=== PATIENT | female | born 2000 | race Caucasian/White ===

== ENCOUNTER 2018-10-07 20:16 | Observation (INO) ==
[2018-10-07] MEDS ORDERED: ACETAMINOPHEN 500 MG TABLET PO ONE (21:45)
[2018-10-07 22:00] LABS: Hemoglobin [HGB] 11.6 g/dL (12.0-16.0); MEAN CORPUSCULAR HGB CONC 33.1 g/dL (33-37); MEAN CORPUSCULAR VOLUME 87.5 FL (81-99); MEAN PLATELET VOLUME 9.9 FL (7.4-12.2)
[2018-10-07 22:11] LABS: BLOOD UREA NITROGEN 11 mg/dL (7-22); BUN/CREATININE RATIO 18.33 (6-20); SERUM ALBUMIN 3.5 g/dL (3.7-5.6)
[2018-10-07] MEDS ORDERED: Promethazine Tab 25 MG TAB PO PRN (22:41)
--- NOTE | 2018-10-08 06:58 | OB.PROGRES ---
Intake - - Reason for Visit/Chief Complaint: Nausea and Vomiting Admitted From: Home - Estimated Due Date: 10/23/18 Gestational Age in Weeks and Days: 37 Weeks and 6 Days Para: 1 Term Births: 0 Births: 0 Number of Abortions (Spont./Elective): 0 Living Children: 0 - Labs Blood Type and Rh: O+ Hepatitis B Surface Antigen: Absent HIV: Negative Rubella Status: Immune VDRL/RPR: Absent Maternal - Vital Signs Last Taken Vital Signs: Vital Signs - Last Taken Temperature 97.8 F 10/08/18 03:10 Pulse Rate 82 10/08/18 03:10 Respiratory Rate 18 10/08/18 03:10 Blood Pressure 118/55 10/08/18 03:10 Pulse Ox 100 10/08/18 03:10 - Cervical Exam Cervical Dilation (cm): FT Cervical Effacement Percentage: 0 Exam Performed By: IKE Davidson - Vaginal Discharge Vaginal Bleeding Amount: None Vaginal Discharge Amount: None Vaginal Itching: No Monitoring - Uterine Activity Uterine Contraction Monitor Mode: External Contraction Frequency(minutes): 0 Contraction Duration (seconds): 0 Uterine Contraction Pattern: None Uterine Tone Measurement Phase: Soft Uterine Contraction Intensity: Mild Howard Score - Howard Score Cervical Dilation: 0 cm Cervical Effacement: 0-30% Station: -3 Cervical Consistency: Firm Cervical Position: Midposition Howard Score Total: 1 Results - Labs CBC and BMP: 10/07/18 21:58 10/07/18 21:58 Assessment and Plan - Assessment / Plan Additional Assessment/Plan Details: The patient is a 17-year-old at 37-6/7 weeks who presented last evening with significant nausea and emesis 3 over the past 48 hours and a significant headache for 2 hours. The patient had a 24-hour urine completed within the past couple weeks which showed 311 mg in 24 hours. By patient history, the patient has chronic hypertension with history of being on metoprolol and an DIPESH inhibitor to attempt to control her blood pressure and required both medications. Since the patient's onset of her , the patient has not been on an antihypertensive and her blood pressures have been normal. The patient hurt her toe several weeks ago and was seen in an urgent care clinic in [place], [place] and was informed that her blood pressure was elevated. The patient then went to labor and delivery and she had 1 elevated blood pressure with a systolic of 147 but a normal diastolic blood pressure but all blood pressures after that were normal. Last evening the patient presented and her initial blood pressure was 141/82 but all other blood pressures have been normal. There have been no other recorded high blood pressures. However, the patient states that she takes her blood pressures intermittently at home and several have been elevated but no specific documentation of this. Last evening the patient had a reactive NST with no regular contractions. The patient was given promethazine 25 mg tablet and the patient asked to eat even pr ior to being given the promethazine because she was hungry. The patient was also given Tylenol for her headache. This morning, the patient states that she slept well and that she does not have a headache this morning and it is completely resolved and the patient does not have nausea or emesis overnight and no nausea currently. The patient had labs which showed a normal H&H, normal platelets, normal creatinine, normal liver function tests and normal amylase and lipase. GBS -2 weeks ago. Past medical history significant for anxiety, depression, sinus tachycardia and hypertension. No diabetes. No asthma. The patient stated that she had a significant workup with cardiology but was never informed of the results except for she received a letter stating that everything was normal. The patient then saw another doctor 2 months later and was placed on the 2 antihypertensives secondary to high blood pressure. The patient does not recall if she was evaluated for other causes of hypertension. The patient did have a Holter monitor as well as a stress test by cardiology. Past surgical history-no abdominal surgery Allergies to lawanda such as lidocaine or benzocaine. The patient apparently can take Carbocaine. The patient was seen by an cotton grower. Tobacco during none. Patient did smoke prior to but quit when she discovered she was . No alcohol in . No drugs in . Objective: Please see the vital signs. Initial blood pressure was 141/82 but all other blood pressures have been normal. Gen.-well-developed well-nourished woman in no acute distress. Patient was sleeping when I first went into the room. Lungs clear to auscultation Heart slight tachycardia with a pulse between 101 and 108. Otherwise regular rhythm Abdomen is gravid and soft. Cephalic by Noel's. Cervix by my check was fingertip and her cervix was posterior and head was -4 station Lower Extremities with trace to 1+ edema. No clonus. Patellar reflexes were 2+ bilaterally. Assessment: IUP 37-6/7 weeks with proteinuria with 311 mg in 24 hours. Patient with a history of chronic hypertension with patient reporting requiring 2 different medications a beta renee and an DIPESH inhibitor to control her blood pressures. This was prior to . During the patient's , the patient has not been on an antihypertensive and her blood pressures have been normal. The patient has had 2 recorded elevated blood pressures that were mildly e levated. Several weeks ago she had a systolic blood pressure of 147 although the diastolic blood pressure was normal and this is when she first presented after being seen in the urgent care after possibly fracturing her toe. The patient was concerned about her and presented to labor and delivery. The patient had one elevated blood pressure and then all other blood pressures were normal. The patient has had normal blood pressures since. Last evening, the patient presented and had an elevated blood pressure of 141/82 and then all other blood pressures are normal. Reactive NST. The patient's headache has resolved completely. Liver function tests were normal, creatinine was normal. Amylase and lipase was normal. The patient does not have hemoconcentration of her H&H. An platelets are normal. The patient's nausea and vomiting has resolved completely. Group B strep negative. Plan: The patient, her mother and father and myself discussed the fact that the patient has chronic hypertension. The patient may have superimposed preeclampsia but the majority of her blood pressures are normal and the 2 elevated blood pressures that she has had several weeks apart were when the patient was either in pain with a possible fractured toe or when she was in pain with a headache and both times there was anxiety involved. Follow-up blood pressures have all been normal. There was not a baseline 24-hour urine completed. The 24 urine completed a couple weeks ago was elevated at 311 mg. Patient with chronic hypertension and superimposed preeclampsia sometimes will have even increased proteinuria with greater than 500 mg in 24 hours. I am not sure if I can state that the patient has chronic hypertension with superimposed preeclampsia currently. I would like to get a biophysical profile this morning to check the TRICIA but also other biophysical profile parameters. We discussed the possibility of returning tomorrow and having a new set of labs drawn and checking her blood pressures if the BPP is normal. Of course, if the patient develops a headache or nausea and vomiting, the patient should return sooner. We discussed cervical ripening with Cytotec tomorrow at 38 weeks gestation if the patient's blood pressure was again elevated or if the labs were abnormal or significant changes in the labs were noted. We also discussed induction of labor today with cervical ripening if the patient's biophysical profile was decreased. Currently, I will await the biophysical profile.
--- NOTE | 2018-10-08 10:16 | DI ---
LIMITED OBSTETRICAL ULTRASOUND FOR BIOPHYSICAL PROFILE, 10/08/2018 8:30 AM Clinical History: Proteinuria of . Chronic hypertension. Previous Exam: 09/28/2018. EDC Based on Early OB US: 10/23/2018. TRICIA: 12.9 cm. Heart Rate: 156 beats per minute. Placenta: Posterior corpus. Grade 1. Respiration Score: 2 Fine Motor Score: 2 Gross Motor Score: 2 Amnionic Fluid Score: 2 Reading: Biophysical Profile Score: 8/8
== END 2018-10-08 10:45 | disposition home or self-care (01) ==
LOC: OBIP 20:16 → OBOP 20:16
PROVIDERS: ADMIT Obstetrics & Gynecology; ATTEND Obstetrics & Gynecology

== ENCOUNTER 2018-10-09 12:35 | Observation (INO) ==
[2018-10-09 13:08] LABS: Hematocrit [HCT] 35.4 % (37.0-47.0); MEAN CORPUSCULAR HGB CONC 33.9 g/dL (33-37); MEAN CORPUSCULAR VOLUME 87.6 FL (81-99); MEAN PLATELET VOLUME 9.7 FL (7.4-12.2); RED BLOOD COUNT 4.04 10^6/uL (4.20-5.40)
[2018-10-09 13:18] LABS: BLOOD UREA NITROGEN 10 mg/dL (7-22); BUN/CREATININE RATIO 16.66 (6-20); SERUM ALBUMIN 3.7 g/dL (3.7-5.6); Uric Acid 5.3 mg/dl (2.5-6.2)
[2018-10-09] MEDS ORDERED: MORPHINE SULFATE 4 MG/1 ML IM PRN (15:13)
[2018-10-09] MEDS ORDERED: DOCUSATE 100 MG CAPSULE PO ONE (15:17)
--- NOTE | 2018-10-09 15:30 | OB.PROGRES ---
Intake - - Reason for Visit/Chief Complaint: BP Monitoring, NST Admitted From: Home - Estimated Due Date: 10/23/18 Gestational Age in Weeks and Days: 38 Weeks and 0 Days Para: 1 Term Births: 0 Births: 0 Number of Abortions (Spont./Elective): 0 Living Children: 0 - Labs Blood Type and Rh: O+ Maternal - Vital Signs Last Taken Vital Signs: Vital Signs - Last Taken Temperature 98.3 F 10/09/18 12:44 Pulse Rate 79 10/09/18 12:44 Respiratory Rate 16 10/09/18 12:44 Blood Pressure 120/65 10/09/18 13:17 Pulse Ox 99 10/09/18 12:44 - Vaginal Discharge Vaginal Bleeding Amount: None Vaginal Discharge Amount: None Monitoring - Uterine Activity Uterine Contraction Monitor Mode: External Uterine Contraction Pattern: Irregular Uterine Tone Measurement Phase: Soft Results - Labs CBC and BMP: 10/09/18 12:53 10/09/18 12:53 Assessment and Plan - Assessment / Plan Additional Assessment/Plan Details: Please see the note for low from yesterday. The patient presented today for follow-up. Positive movement. No gush of fluid or bleeding. No regular contractions. Only a few irregular contractions. The patient is without right upper quadrant pain. No nausea or vomiting. The patient does have a headache. Today, the patient relays that she has a long history of headaches. Often, sleep is the only treatment that resolves her headache. The patient states that over the past 4-5 weeks, the patient has had a different type of headache that has been quite significant. She will often go to sleep and then wake up with a headache. When questioned about her headache from Tuesday evening to Tuesday morning, the patient states that her headache really never did resolve even though that is what she told me yesterday. She stated that when she got home she had a headache again. She did not take Tylenol. She stated that she slept most of the day yesterday. This morning at 1100 hrs., the patient took 2 extra strength Tylenol. The headache was 7 out of 10 and now it is 4 out of 10 in intensity. The patient's blood pressures today are normal. All of her labs are normal. Reactive NST. She did have a urine specific gravity 1.020 and I looked at her urine and it was just a dark yellow and that is what the patient was calling a bright yellow color before. Apparently, she is third spacing some fluid and her urine is concentrated most of the time. I did check the patient's cervix after the patient voided and the patient's cervix was a fingertip external os and cephalic by Noel's. Ultrasound yesterday confirms cephalic presentation. The patient, her mother, and I discussed preeclampsia and that usually headaches with preeclampsia do not resolve at all secondary to cerebral edema. We discussed that all of her blood pressures are normal today. All of her labs are normal. The patient does have a 24-hour urine completed a couple weeks ago that did show 311 mg in 24 hours. This is slightly elevated greater than the 300 mg per 24 hour cut off point. The patient does have chronic hypertension with a history of being on 2 different antihypertensives-a beta renee and an DIPESH inhibitor but has not required any antihypertensive this . Although her headaches may be related to preeclampsia, my thoughts are that her headaches are not related to preeclampsia. The patient has had 2 documented elevated blood pressures over the past 3 weeks with yesterday's blood pressure with a systolic of 141 over 80s and a previous one of 147 over 80s. All other blood pressures have been normal this entire documented by us. The patient and I discussed IM morphine and promethazine orally. I will administer morphine 4 mg IM 1 dose and promethazine 25 mg tablet one half tablet to one tablet by mouth every 6 hours. If the patient's headache does not resolve, the patient will have to undergo cervical ripening and induction of labor for presumed preeclampsia with proteinuria and headache or cephalgia and the 2 isolated minimally elevated blood pressures. If the patient's headache does resolve, the patient will go home with strict precautions to return. I may have to observe the patient overnight depending upon the patient's headache. If the patient's headache worsens, I will offer the patient induction of labor with cervical ripening with Cytotec and place the patient on magnesium sulfate prophylaxis. Previous note from yesterday: The patient is a 17-year-old at 37-6/7 weeks who presented last evening with significant nausea and emesis 3 over the past 48 hours and a significant headache for 2 hours. The patient had a 24-hour urine completed within the past couple weeks which showed 311 mg in 24 hours. By patient history, the patient has chronic hypertension with history of being on metoprolol and an DIPESH inhibitor to attempt to control her blood pressure and required both medications. Since the patient's onset of her , the patient has not been on an antihypertensive and her blood pressures have been normal. The patient hurt her toe several weeks ago and was seen in an urgent care clinic in [place], [place] and was informed that her blood pressure was elevated. The patient then went to labor and delivery and she had 1 elevated blood pressure with a systolic of 147 but a normal diastolic blood pressure but all blood pressures after that were normal. Last evening the patient presented and her initial blood pressure was 141/82 but all other blood pressures have been normal. There have been no other recorded high blood pressures. However, the patient states that she takes her blood pressures intermittently at home and sev eral have been elevated but no specific documentation of this. Last evening the patient had a reactive NST with no regular contractions. The patient was given promethazine 25 mg tablet and the patient asked to eat even prior to being given the promethazine because she was hungry. The patient was a lso given Tylenol for her headache. This morning, the patient states that she slept well and that she does not have a headache this morning and it is completely resolved and the patient does not have nausea or emesis overnight and no nausea currently. The patient had labs which showed a normal H&H, normal platelets, normal creatinine, normal liver function tests and normal amylase and lipase. GBS -2 weeks ago. Past medical history significant for anxiety, depression, sinus tachycardia and hypertension. No diabetes. No asthma. The patient stated that she had a significant workup with cardiology but was never informed of the results except for she received a letter stating that everything was normal. The patient then saw another doctor 2 months later and was placed on the 2 antihypertensives secondary to high blood pressure. The patient does not recall if she was evaluated for other causes of hypertension. The patient did have a Holter monitor as well as a stress test by cardiology. Past surgical history-no abdominal surgery Allergies to lawanda such as lidocaine or benzocaine. The patient apparently can take Carbocaine. 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 Tobacco during none. Patient did smoke prior to but quit when she discovered she was . No alcohol in . No drugs in . Objective: Please see the vital signs. Initial blood pressure was 141/82 but all other blood pressures have been normal. Gen.-well-developed well-nourished woman in no acute distress. Patient was sleeping when I first went into the room. Lungs clear to auscultation Heart slight tachycardia with a pulse between 101 and 108. Otherwise regular rhythm Abdomen is gravid and soft. Cephalic by Noel's. Cervix by my check was fingertip and her cervix was posterior and head was -4 station Lower Extremities with trace to 1+ edema. No clonus. Patellar reflexes were 2+ bilaterally. Assessment: IUP 37-6/7 weeks with proteinuria with 311 mg in 24 hours. Patient with a history of chronic hypertension with patient reporting requiring 2 different medications a beta renee and an DIPESH inhibitor to control her blood pressures. This was prior to . During the patient's , the patient has not been on an antihypertensive and her blood pressures have been normal. The patient has had 2 recorded elevated blood pressures that were mildly elevated. Several weeks ago she had a systolic blood pressure of 147 although the diastolic blood pressure was normal and this is when she first presented after being seen in the urgent care after possibly fracturing her toe. The patient was concerned about her and presented to labor and delivery. The patient had one elevated blood pressure and then all other blood pressures were normal. The patient has had normal blood pressures since. Last evening, the patient presented and had an elevated blood pressure of 141/82 and then all other blood pressures are normal. Reactive NST. The patient's headache has resolved completely. Liver function tests were normal, creatinine was normal. Amylase and lipase was normal. The patient does not have hemoconcentration of her H&H. An platelets are normal. The patient's nausea and vomiting has resolved completely. Group B strep negative. Plan: The patient, her mother and father and myself discussed the fact that the patient has chronic hypertension. The patient may have superimposed preeclampsia but the majority of her blood pressures are normal and the 2 elevated blood pressures that she has had several weeks apart were when the patient was either in pain with a possible fractured toe or when she was in pain with a headache and both times there was anxiety involved. Follow-up blood pressures have all been normal. There was not a baseline 24-hour urine completed. The 24 urine completed a couple weeks ago was elevated at 311 mg. Patient with chronic hypertension and superimposed preeclampsia sometimes will have even increased proteinuria with greater than 500 mg in 24 hours. I am not sure if I can state that the patient has chronic hypertension with superimposed preeclampsia currently. I would like to get a biophysical profile this morning to check the TRICIA but also other biophysical profile parameters. We discussed the possibility of returning tomorrow and having a new set of labs drawn and checking her blood pressures if the BPP is normal. Of course, if the patient develops a headache or nausea and vomiting, the patient should return sooner. We discussed cervical ripening with Cytotec tomorrow at 38 weeks gestation if the patient's blood pressure was again elevated or if the labs were abnormal or significant changes in the labs were noted. We also discussed induction of labor today with cervical ripening if the patient's biophysical profile was decreased. Currently, I will await the biophysical profile. Addendum entered and electronically signed by Colten Mead 10/08/18 10:44: Biophysical profile was 10 out of 10. The patient's blood pressures have all been normal. The patient does not have a headache. Her nausea has resolved. No emesis. The patient, her mother, her father and myself talked at length. I sighted an article on chronic hypertension in and read them aspects of the article. I discussed induction between 38 and 0 and 39 and 6 when patients are not on antihypertensives. We discussed superimposed preeclampsia and the diagnosis with often a change in the baseline 24-hour urine for total protein. The patient had a 24-hour urine for total protein completed a couple weeks ago which showed 311 mg in 24 hours. The current plan is to have the patient return tomorrow for a nonstress test as well as a gestational hypertension panel. kick counts and labor precautions and preeclampsia precautions discussed with patient. If the patient has a headache that is not resolving with 2 extra strength along all or 3 regular Tylenol then the patient should call labor and delivery. The patient has severe right upper quadrant pain that is not resolving. The patient expressed understanding we'll follow up tomorrow midday in the early afternoon. Unless something changes.
[2018-10-09] MEDS: Promethazine Tab 25 MG TAB PO PRN ×2 (15:32→21:29)
--- NOTE | 2018-10-09 22:19 | OB.PROGRES ---
Interval History: The patient states that her headache did not worsen but has stayed about the same. She did not sleep that much. She was nauseated after the morphine was administered IM. She is feeling better now. She just took another dose of promethazine. Positive movement. No regular contractions. No gush of fluid. Objective - Cervical Exam Cervical Exam: Deferred exam now [place]: Infrequent contractions Heart Rate Interpretation Category: Category I - Labs CBC and BMP: 10/09/18 12:53 10/09/18 12:53 - Vital Signs Last Taken Vital Signs: Vital Signs - Last Taken Temperature 97.9 F 10/09/18 19:00 Pulse Rate 96 10/09/18 19:00 Respiratory Rate 17 10/09/18 21:09 Blood Pressure 128/67 10/09/18 19:00 Pulse Ox 100 10/09/18 19:00 Assessment and Plan - Assessment / Plan Additional Assessment/Plan Details: Assessment: IUP 38 weeks with proteinuria of 311 mg in 24 hours a couple weeks ago and the patient has had 2 systolic blood pressures that have been mildly elevated in the past 3-4 weeks. 1 with a systolic of 147 several weeks ago and 1 with a systolic of 141 yesterday. All other blood pressures of been normal. The patient states that she has a history of hypertension before and was on 2 different medications a beta renee and an DIPESH inhibitor to control her blood pressure. The patient then went off of them and when the patient conceived the patient was not on blood pressure medicines. The patient has not required any blood pressure meds during her but the patient has a diagnosis of chronic hypertension secondary to previously being on 2 different antihypertensives. The patient states she has a long history of headaches. However, over the past for 5 weeks the headaches have changed somewhat. The only resolve with sleep. Please see my note from earlier today and yesterday. The patient had a headache yesterday that I thought resolved and was sent home. The patient today stated that her headache really did not resolve and return when she got home. The patient took Tylenol this morning at 11:00 and then when she was here received 4 mg of IM morphine and 25 mg of promethazine. She only slept a little bit and the headache did not worsen but did not resolve. The patient's cervix is only a fingertip dilated external os. GBS negative. The patient's blood pressures are completely normal. No elevated blood pressures. Labs were normal today. Plan: The patient will be observed overnight. Tylenol every 6 hours and promethazine every 6 hours as needed. Reassessment of labs in the morning. I will then reassess the patient's headache. I will then discuss the patient with her primary SPEECH LANGUAGE PATHOLOGIST TRAVEL and the plan will be made once I have the new labs and determine if the patient's headache resolved overnight. The patient expressed understanding with this plan.
[2018-10-09] MEDS: ACETAMINOPHEN 500 MG TABLET PO PRN (22:32)
[2018-10-10 04:40] LABS: Hematocrit [HCT] 35.1 % (37.0-47.0); Hemoglobin [HGB] 11.4 g/dL (12.0-16.0); MEAN CORPUSCULAR HGB CONC 32.5 g/dL (33-37); MEAN CORPUSCULAR VOLUME 87.5 FL (81-99); MEAN PLATELET VOLUME 10.4 FL (7.4-12.2); RED BLOOD COUNT 4.01 10^6/uL (4.20-5.40)
[2018-10-10 05:00] LABS: BLOOD UREA NITROGEN 9 mg/dL (7-22); SERUM ALBUMIN 3.1 g/dL (3.7-5.6); Uric Acid 5.1 mg/dl (2.5-6.2)
[2018-10-10] MEDS: ACETAMINOPHEN 500 MG TABLET PO PRN (07:49)
--- NOTE | 2018-10-10 08:03 | OB.PROGRES ---
Interval History: The patient did rest overnight but her headache did not decrease. Is still 4 out of 10 in intensity. The patient states that she has pressure behind her eyes. This has been occurring for about 4 weeks. This is not her normal headaches that she usually has according to the patient. Positive movement. No gush of fluid. No bleeding. Objective - Cervical Exam Cervical Exam: Deferred exam Heart Rate Interpretation Category: Category I - Labs CBC and BMP: 10/10/18 04:30 10/10/18 04:30 - Vital Signs Last Taken Vital Signs: Vital Signs - Last Taken Temperature 98.3 F 10/10/18 07:49 Pulse Rate 78 10/10/18 05:42 Respiratory Rate 17 10/10/18 05:42 Blood Pressure 100/52 10/10/18 05:42 Pulse Ox 100 10/09/18 19:00 - Additional Details Additional Details: Lungs clear to auscultation Heart regular rate and rhythm Abdomen is gravid and soft and nontender guarding or rebound Extremities with 1+ edema bilaterally. Reflexes were 2+ bilaterally patellar No clonus. Assessment and Plan - Assessment / Plan Additional Assessment/Plan Details: Assessment: IUP 38-02/13 week. Chronic hypertension with proteinuria of 311 mg. The patient has chronic headaches but the patient states that these headaches for the past 4 weeks or different. The patient's headache did not resolve but did not increase in intensity. 4 out of 10. Labs are all normal. Platelets. Normal H&H. Normal liver function tests. Normal renal function tests. Reactive NST. Plan: Tylenol 1000 mg every 6 hours and promethazine 25 mg 1/2-1 tab every 6 hours when necessary pain patient received 1000 mg of Tylenol last evening at 2200 hrs. and just received some Tylenol now. I spoke with Dr. Jj who is her primary HOST/[employer]. We will determine if the patient's headaches resolved with the current Tylenol and resting a little bit more. It is difficult to distinguish between her chronic headaches and the current headaches. I do not believe that her current headaches are secondary to preeclampsia. Her blood pressures are very normal. Labor and delivery will contact Dr. Jj and a couple hours. Serial blood pressures.
[2018-10-12 18:02] LABS: 24 HOUR URINE TOTAL VOLUME 2725 ML
== END 2018-10-10 10:00 | disposition home or self-care (01) ==
LOC: OBIP 12:35 → OBOP 12:35
PROVIDERS: ADMIT Obstetrics & Gynecology; ATTEND Obstetrics & Gynecology